=== PATIENT | female | born 1945 | race Two or more races ===

== ENCOUNTER 2022-06-05 09:04 | Emergency (ER) | payer MEDICARE, MEDICAID ==
[~2022-06-05] VITALS: Ht 142.2 cm; Wt 68.2 kg
[2022-06-05 09:10] VITALS: BP 129/81
[2022-06-05] MEDS ORDERED: TRAM50TA2 PO (10:41)
== END 2022-06-05 10:39 | disposition home or self-care (01) ==
LOC: ER 09:05
DX: S42.211A Unspecified displaced fracture of surgical neck of right humerus, initial encounter for closed fracture (principal); R53.1 Weakness; Z87.448 Personal history of other diseases of urinary system; Z88.0 Allergy status to penicillin; Z88.8 Allergy status to other drugs, medicaments and biological substances; Z79.899 Other long term (current) drug therapy
CPT/HCPCS: 73030; 99283; A4565

== ENCOUNTER 2023-08-25 11:03 | Inpatient (IN) | payer MEDICARE, MEDICAID ==
[~2023-08-25] VITALS: Ht 154.9 cm; Wt 38.0 kg
[2023-08-25] MEDS ORDERED: normal saline 1000ML IV soln IVB ONE (11:25)
--- NOTE | 2023-08-25 11:30 | NUR ---
PT BIBA FROM REHAB, MARX CATH AND PICC LINE IN PLACE. EMS PLACED 20ga PIV IN L HAND. PT IS AWAKE & ALERT, BUT IS NON-VERBAL. FAMILY IS ON THERE WAY
[2023-08-25] MEDS ORDERED: LORazepam 2 mg/ml vial IV ONE (12:00)
[2023-08-25 13:04] LABS: BASOPHILS % (AUTO) 0.8 % (0-1); EOSINOPHILS % (AUTO) 0.1 % (0-6); HEMATOCRIT 32.4 % (35.0-45.0); HEMOGLOBIN 10.7 g/dl (12.0-16.0); LYMPHOCYTES # (AUTO) 0.9 X10'3 (1.1-4.8); LYMPHOCYTES % (AUTO) 16.4 % (21-51); MEAN CORPUSCULAR HEMOGLOBIN 31.3 PG (27.0-31.0); MEAN CORPUSCULAR VOLUME 94.9 FL (78-98); MEAN PLATELET VOLUME 9.3 FL (7.4-10.4); MONOCYTES # (AUTO) 0.3 X10'3 (0-0.9); MONOCYTES % (AUTO) 6.3 % (2-12); NEUTROPHILS % (AUTO) 76.4 % (42-75); PLATELET COUNT 280 X10'3 (140-440); RED BLOOD COUNT 3.41 X10'6 (4.20-5.60); RED CELL DISTRIBUTION WIDTH 19.6 % (11.5-14.5); WHITE BLOOD COUNT 5.2 X10'3 (4.5-11.0)
[2023-08-25 13:07] LABS: BILIRUBIN,URINE NEGATIVE (Neg); CLARITY,URINE SLIGHTLY CLOUDY (Clear); COLOR,URINE YELLOW (Yellow); GLUCOSE, URINE NEGATIVE (Neg); KETONES,URINE 15 mg/dl (Neg); LEUKOCYTE ESTERASE ,URINE MODERATE (Neg); NITRITES, URINE NEGATIVE (Neg); OCCULT BLOOD,URINE TRACE-INTACT (Neg); PH,URINE 7.5 (4.8-8.0); PROTEIN,URINE 30 mg/dl (Neg); UROBILINOGEN,URINE 0.2 E.U/dL (0.2-1.0)
[2023-08-25 13:11] LABS: UA COLLECTION TYPE FOLEY CATH
[2023-08-25 13:14] LABS: ALANINE AMINOTRANSFERASE 16 U/L (12-78); ALBUMIN 2.3 G/DL (3.4-5.0); ALBUMIN/GLOBULIN RATIO 0.5 (1.1-1.5); ALKALINE PHOSPHATASE 63 IU/L (46-116); ANION GAP 11 (8-16); ASPARTATE AMINO TRANSFERASE 23 U/L (10-37); BILIRUBIN,TOTAL 0.4 MG/DL (0.1-1.0); BLOOD UREA NITROGEN 8 MG/DL (7-18); BUN/CREATININE RATIO 12.1 (10.0-20.0); CALCIUM 8.8 MG/DL (8.5-10.1); CHLORIDE 104 MMOL/L (99-107); CREATININE 0.66 MG/DL (0.40-0.90); GLUCOSE 83 MG/DL (70-104); SODIUM 138 MMOL/L (135-145); TOTAL CARBON DIOXIDE 23.3 MMOL/L (24-32); eCRCL 44 ML/MIN; eGFR 87 ML/MIN
[2023-08-25 13:16] LABS: POTASSIUM 2.9 MMOL/L (3.5-5.1)
[2023-08-25 13:22] LABS: SQUAMOUS EPITHELIAL CELL,UR NONE SEEN /LPF (FEW); WBC,URINE 50-100 /HPF (0-4)
[2023-08-25 13:26] LABS: BACTERIA,URINE FEW /HPF (Neg); RBC,URINE 0-2 /HPF (0-2); YEAST FEW /HPF (NEGATIVE)
[2023-08-25 13:37] LABS: PLATELET ESTIMATE NORMAL
[2023-08-25 13:38] LABS: ANISOCYTOSIS 2+; POIKILOCYTOSIS FEW
[2023-08-25] MEDS ORDERED: MEROPENEM 1GM/NS 100ML IVPB 100 ML IV STA (13:42)
--- NOTE | 2023-08-25 14:30 | NUR ---
PT SLEEPING AFTER BEING MEDICATED. FAMILY AT BS
[2023-08-25] MEDS ORDERED: potassium Cl 40MEQ/1/2NS 520ml 520 ML IV ONE (15:10)
[2023-08-25] MEDS ORDERED: potassium Cl 20 mEq SR tablet PO ONE (15:10)
[2023-08-25 15:21] LABS: MAGNESIUM 1.9 MG/DL (1.5-2.4)
[2023-08-25] MEDS: potassium Cl 40MEQ/1/2NS 520ml 520 ML IV SCH ×2 (15:42→20:20)
--- NOTE | 2023-08-25 16:12 | NUR ---
PT WITH NO CHANGE FROM PREVIOUS. IV K+ RUNNING. FAMILY AT .
--- NOTE | 2023-08-25 16:13 | NUR ---
Luisa girard in ED - 08/25/23 at 1613 by ROMIE PT IS CALM AND COOPERATIVE, TUNG AT .
[2023-08-25] MEDS ORDERED: potassium Cl 20 mEq SR tablet PO PRN ×2 (16:35)
[2023-08-25] MEDS ORDERED: ondansetron/PF 4mg/2ml inj IV PRN (16:35)
[2023-08-25] MEDS ORDERED: acetaminophen 325mg tablet PO PRN (16:35)
[2023-08-25] MEDS ORDERED: magnesium 4gm in 100ml NS 100 ML IV PRN (16:35)
[2023-08-25] MEDS ORDERED: ondansetron 4mg rapidly disintigrating tab PO PRN (16:35)
[2023-08-25] MEDS ORDERED: magnesium Cl slow-release 64mg tablet PO PRN (16:35)
[2023-08-25] MEDS ORDERED: magnesium 2GM in 50ml NS 50 ML IV PRN (16:35)
[2023-08-25] MEDS ORDERED: potassium Cl 40MEQ/1/2NS 520ml 520 ML IV PRN (16:35)
[2023-08-25] MEDS: normal saline 1000ml 1,000 ML IV SCH ×2 (17:03→21:12)
--- NOTE | 2023-08-25 17:56 | NUR ---
REPORT TO KRIS VASQUES, PT TO FLOOR.
[2023-08-25] MEDS ORDERED: FAMO20TA8 PO (19:47)
[2023-08-25] MEDS ORDERED: CALC-4 PO (19:47)
[2023-08-25] MEDS ORDERED: TRAZ-251 PO (19:47)
[2023-08-25] MEDS ORDERED: ATOR20TA66 PO (19:47)
[2023-08-25] MEDS ORDERED: LEVO50TA8 PO (19:47)
[2023-08-25] MEDS ORDERED: PARO40TA4 PO (19:47)
[2023-08-25] MEDS ORDERED: LORA10TA7 PO (19:47)
--- NOTE | 2023-08-25 19:55 | NUR ---
pt. arrived to floor via gurney accompanied by er staff. pt. arrived with bowel movement in diaper. cleaned pt and oriented to call light.
[2023-08-25 19:57] VITALS: BP 187/88; PULSE 75; RESP 14; TEMP 97.4; O2SAT 87
[2023-08-25] MEDS: docusate sod 100mg capsule PO SCH (20:00)
[2023-08-25] MEDS: K and/or MAG REPLACEMENT MC SCH (20:00)
[2023-08-25] MEDS: VANCOMYCIN 750MG IV in NS 250 ML IV SCH (20:08)
[2023-08-25] MEDS: heparin, porcine 5000 units/ml vial SQ SCH (20:09)
[2023-08-25 22:00] VITALS: BP 172/96; PULSE 85; RESP 19; TEMP 96.8; O2SAT 89
[2023-08-25] MEDS: meropenem inj 500 MG in normal saline 100ml IV soln 100 ML IV SCH (22:14)
[2023-08-26] MEDS: normal saline 1000ml 1,000 ML IV SCH ×2 (00:20→06:01)
[2023-08-26] MEDS: meropenem inj 500 MG in normal saline 100ml IV soln 100 ML IV SCH ×2 (01:41→07:42)
[2023-08-26 06:00] VITALS: BP 188/88; PULSE 72; RESP 16; TEMP 97.3; O2SAT 98
--- NOTE | 2023-08-26 06:23 | NUR ---
Problems reprioritized. Patient report given, questions answered & plan of care reviewed with LAYO Pugh.
--- NOTE | 2023-08-26 06:51 | NUR ---
Patient in room ORTHO 4018. I have received report from Leni and had the opportunity to ask questions and assume patient care.
[2023-08-26 06:52] LABS: ALBUMIN 1.8 G/DL (3.4-5.0); ANION GAP 7 (8-16); BLOOD UREA NITROGEN 7 MG/DL (7-18); BUN/CREATININE RATIO 11.7 (10.0-20.0); CALCIUM 8.2 MG/DL (8.5-10.1); CHLORIDE 112 MMOL/L (99-107); GLUCOSE 65 MG/DL (70-104); MAGNESIUM 1.9 MG/DL (1.5-2.4); POTASSIUM 4.2 MMOL/L (3.5-5.1); SODIUM 139 MMOL/L (135-145); TOTAL CARBON DIOXIDE 20.2 MMOL/L (24-32); eCRCL 48 ML/MIN; eGFR > 90 ML/MIN
[2023-08-26 07:25] LABS: BASOPHILS # (AUTO) 0.1 X10'3 (0-0.2); BASOPHILS % (AUTO) 0.9 % (0-1); EOSINOPHILS # (AUTO) 0.1 X10'3 (0-0.9); EOSINOPHILS % (AUTO) 0.9 % (0-6); HEMATOCRIT 29.6 % (35.0-45.0); HEMOGLOBIN 9.7 g/dl (12.0-16.0); LYMPHOCYTES # (AUTO) 1.3 X10'3 (1.1-4.8); LYMPHOCYTES % (AUTO) 21.3 % (21-51); MEAN CORPUSCULAR HEMOGLOBIN 31.9 PG (27.0-31.0); MEAN CORPUSCULAR HGB CONC 32.7 g/dL (33.0-36.5); MEAN CORPUSCULAR VOLUME 97.7 FL (78-98); MEAN PLATELET VOLUME 8.9 FL (7.4-10.4); MONOCYTES # (AUTO) 0.5 X10'3 (0-0.9); MONOCYTES % (AUTO) 8.6 % (2-12); NEUTROPHILS # (AUTO) 4.2 X10'3 (1.8-7.7); NEUTROPHILS % (AUTO) 68.3 % (42-75); PLATELET COUNT 213 X10'3 (140-440); RED BLOOD COUNT 3.03 X10'6 (4.20-5.60); RED CELL DISTRIBUTION WIDTH 20.5 % (11.5-14.5); WHITE BLOOD COUNT 6.1 X10'3 (4.5-11.0)
[2023-08-26] MEDS: K and/or MAG REPLACEMENT MC SCH ×2 (07:32→20:00)
[2023-08-26] MEDS: docusate sod 100mg capsule PO SCH ×2 (07:38→20:00)
[2023-08-26 08:55] VITALS: RESP 16; O2SAT 98
[2023-08-26] MEDS: heparin, porcine 5000 units/ml vial SQ SCH ×2 (09:28→20:21)
[2023-08-26 10:00] VITALS: BP 209/108; PULSE 79; RESP 18; TEMP 98.3; O2SAT 98
--- NOTE | 2023-08-26 10:42 | NUR ---
PAGER ID: [phone] MESSAGE: Re 4018 Tatyana, BP 168/70, this am 188 SBP, left arm deformed, no BP meds, PT is NPO, please see, berna Pugh [phone]
--- NOTE | 2023-08-26 11:26 | NUR ---
Low de consult: Pt presents with a low de score of 10 per EMR. Per RN physical assessment pt has a decubitus ulcer to coccyx resulting in wound care consult; pending [facility] note. Noted pt presents with a low BMI of 15.8 and a gurney scaled wt of 38kg (84 pounds) this admit with no additional wt hx in EMR. Pending RN malnutrition screen at this time though pt Aox1, worsening confusion, and hx of mild developmental disability as well as had been bedridden for 1 year due to generalized ongoing weakness. Thus pt not appropriate for wt hx or intake CHURCH SECRETARY at this time. Additionally pt has been advanced to nectar thick clear liquid diet though noted pending BSS per EMR. Will continue to monitor closely and make recommendations as appropriate. Addendum: 08/26/23 at [address] Amended: Links added.
[2023-08-26] MEDS ORDERED: meropenem inj 500 MG in normal saline 100ml IV soln 100 ML IV SCH (12:00)
--- NOTE | 2023-08-26 14:05 | NUR ---
F/u 08/26: Pt and 2 family members present at bedside during RD visit for malnutrition assessment. Scaled wt this admit of 38kg (84 pounds) and a BMI of 15.8. Family reports pt's wt typically fluctuates related to her behavior/mentation status however her last weight was 93 pounds about 3 months ago. Wt loss is about ~6.6% in 3 months; not significant for malnutrition at this time. Family reports pt has not ate or drank much for the past month due to change in mentation however eats "really good" otherwise. Pt presents edentulous, family reports for a long time and typically tolerates soft foods at home as well as drink 1/2 ensures twice a day. Family reports "I heard she didnt need that much Ensure so I have been only giving her half". RD encourage family to continue giving full ensures at home to decrease wt loss rate especially during the time of decreased in mentation if appropriate. Family is agreeable to pt drinking Ensures during her admit; will monitor for SAP BASIS ADMINISTRATOR recs and make recommendations as appropriate. Pt physically had signs mild wasting to her clavicle region however no noted physically wasting to temporal region at this time. Pt tighly bundled in a blanket and Aox1 thus not appropriate for a full nutrition focus physical exam. Additionally pt does not have edema at this time. Pt does not meet a minimum of two malnutrition criteria at this time. Addendum: 08/26/23 at [address] Amended: Links added.
--- NOTE | 2023-08-26 15:27 | NUR ---
PAGER ID: [phone] MESSAGE: Tatyana Olmos #[id number] - Pt needs pain meds. Can we have liquid Tylenol for her?? Not eating. Speech pathologist consult pending. Please advise. Molly Cosme for Lexy Enciso. [phone]
--- NOTE | 2023-08-26 16:42 | NUR ---
RE: 4018 Tatyana, positive blood cultures gram + cocci in clusters, aerobic bottle, right arm
[2023-08-26] MEDS: acetaminophen 650mg rectal suppository RC PRN (17:38)
[2023-08-26 18:00] VITALS: BP 160/94; PULSE 89; RESP 16; TEMP 98.9; O2SAT 99
--- NOTE | 2023-08-26 18:23 | NUR ---
Problems reprioritized. Patient report given, questions answered & plan of care reviewed with Holly Arciniega RN.
--- NOTE | 2023-08-26 18:30 | NUR ---
Patient in room ORTHO 4018. I have received report from LAYO Pugh and had the opportunity to ask questions and assume patient care.
[2023-08-26 20:10] VITALS: RESP 16; O2SAT 99
[2023-08-26] MEDS: levetiracetam inj 500 MG in normal saline 100ml IV soln 100 ML IV SCH (20:19)
[2023-08-26] MEDS: VANCOMYCIN 750MG IV in NS 250 ML IV SCH (20:20)
[2023-08-26 22:00] VITALS: BP 167/71; PULSE 80; RESP 16; TEMP 98.9; O2SAT 100
[2023-08-27 06:00] VITALS: BP 169/74; PULSE 76; RESP 14; TEMP 96.5; O2SAT 100
[2023-08-27 06:16] LABS: BASOPHILS # (AUTO) 0.1 X10'3 (0-0.2); BASOPHILS % (AUTO) 0.9 % (0-1); EOSINOPHILS # (AUTO) 0.1 X10'3 (0-0.9); EOSINOPHILS % (AUTO) 1.3 % (0-6); HEMATOCRIT 28.1 % (35.0-45.0); HEMOGLOBIN 9.1 g/dl (12.0-16.0); LYMPHOCYTES # (AUTO) 1.4 X10'3 (1.1-4.8); LYMPHOCYTES % (AUTO) 22.1 % (21-51); MEAN CORPUSCULAR HEMOGLOBIN 31.8 PG (27.0-31.0); MEAN CORPUSCULAR HGB CONC 32.3 g/dL (33.0-36.5); MEAN CORPUSCULAR VOLUME 98.7 FL (78-98); MEAN PLATELET VOLUME 9.1 FL (7.4-10.4); MONOCYTES # (AUTO) 0.7 X10'3 (0-0.9); MONOCYTES % (AUTO) 10.3 % (2-12); NEUTROPHILS # (AUTO) 4.2 X10'3 (1.8-7.7); NEUTROPHILS % (AUTO) 65.4 % (42-75); PLATELET COUNT 217 X10'3 (140-440); RED BLOOD COUNT 2.84 X10'6 (4.20-5.60); RED CELL DISTRIBUTION WIDTH 20.4 % (11.5-14.5); WHITE BLOOD COUNT 6.4 X10'3 (4.5-11.0)
[2023-08-27 06:20] LABS: ALBUMIN 1.7 G/DL (3.4-5.0); ANION GAP 9 (8-16); BLOOD UREA NITROGEN 7 MG/DL (7-18); BUN/CREATININE RATIO 10.9 (10.0-20.0); CHLORIDE 114 MMOL/L (99-107); CREATININE 0.64 MG/DL (0.40-0.90); GLUCOSE 81 MG/DL (70-104); MAGNESIUM 1.7 MG/DL (1.5-2.4); POTASSIUM 3.2 MMOL/L (3.5-5.1); SODIUM 142 MMOL/L (135-145); TOTAL CARBON DIOXIDE 19.2 MMOL/L (24-32); eCRCL 45 ML/MIN; eGFR 90 ML/MIN
--- NOTE | 2023-08-27 06:39 | NUR ---
Patient in room ORTHO 4018. I have received report from LAYO Barrera and had the opportunity to ask questions and assume patient care.
--- NOTE | 2023-08-27 06:46 | NUR ---
Problems reprioritized. Patient report given, questions answered & plan of care reviewed with LAYO Miller.
[2023-08-27 07:21] LABS: PLATELET ESTIMATE NORMAL
[2023-08-27 07:22] LABS: ANISOCYTOSIS 3+
[2023-08-27 07:23] LABS: BURR CELLS FEW
[2023-08-27] MEDS: K and/or MAG REPLACEMENT MC SCH ×2 (08:00→20:00)
[2023-08-27] MEDS: normal saline 1000ml 1,000 ML IV SCH ×2 (08:35→19:59)
[2023-08-27] MEDS ORDERED: potassium Cl 20 mEq SR tablet PO STA (08:43)
[2023-08-27] MEDS: docusate sod 100mg capsule PO SCH ×2 (09:09→20:00)
[2023-08-27] MEDS: levetiracetam inj 500 MG in normal saline 100ml IV soln 100 ML IV SCH ×2 (09:09→19:58)
[2023-08-27] MEDS: heparin, porcine 5000 units/ml vial SQ SCH ×2 (09:09→22:01)
[2023-08-27] MEDS: atorvastatin 20mg tablet PO SCH (09:09)
[2023-08-27] MEDS ORDERED: acetaminophen 325mg/10.15ml oral unit dose solution PO PRN (09:50)
[2023-08-27] MEDS ORDERED: HYDROcodone/acetaminophen 5mg/325mg tablet PO PRN (09:50)
--- NOTE | 2023-08-27 10:23 | NUR ---
pt was able to take an oral medication for me, but is better with liquids. Liquid acetaminophen has been ordered to help with pain. Son is in room visiting and says that she seems sedated to him and that her baseline is that she can have a conversation and understand where she is at. Pt has been nonverbal for me and not able to communicate other than painful grimaces and some shouting.
[2023-08-27] MEDS: acetaminophen 650mg rectal suppository RC PRN (10:36)
--- NOTE | 2023-08-27 11:04 | NUR ---
pt K is 3.2l and needs to be replaced IV due to patient not being able to swallow k-dur tablet. I messaged pharmacy and will continue to check omnicell for IV medication.
--- NOTE | 2023-08-27 12:37 | NUR ---
Paged PICC nurse to D/C picc line, will continue to monitor patient.
--- NOTE | 2023-08-27 12:54 | NUR ---
F/u 08/27: Pt seen by RISK CONTROL MANAGER this AM whom recommends full liquid nectar thick liquid diet and a feeder to assist with meals. Due to restrictive diet, recommend Ensure Enlive to help meet estimated needs; MD notified. Will continue to monitor for WOC note. Recommendations: 1.continue full liquid nectar thick diet per RISK CONTROL MANAGER; feeder with all meals 2.Ensure Enlive TIDWM to help meet estimated needs while on restrictive diet; pending physician approval in EMR Addendum: 08/27/23 at [address] Amended: Links added.
--- NOTE | 2023-08-27 15:28 | NUR ---
PRESSURE ULCER EDUCATION: DEFINITION: A pressure ulcer is an area of skin that breaks down when you stay in one position too long. The constant pressure against the skin reduces the blood flow to that area and the affected tissue dies. CAUSES: "Being bedridden or in a wheelchair "Fragile skin "Having a chronic condition, such as diabetes or vascular disease "Inability to move certain parts of your body without assistance "Older age "Incontinence of urine or stool SYMPTOMS: "A reddened area that DOES NOT turn white when pressed on - this can be the beginning of a pressure ulcer "A blister, deep sore or a crater - these can be advanced pressure ulcers FIRST AID: "Relieve the pressure on this area "Keep the area clean and dry "Call your primary doctor if you see any of the above symptoms "DO NOT massage the area "DO NOT use a donut shaped or ring shaped pillow- these actually interfere with the blood flow and cause complications PREVENTION: "Check for pressure ulcers everyday "Change position at least every two hours to relieve pressure "Use items that help relieve pressure- pillows, sheepskin, foam padding, and powders. "Keep skin clean and dry "Eat healthy well balanced meals "Exercise daily IF YOU SEE ANY OF THESE SYMPTOMS WHILE IN THE HOSPITAL - TELL YOUR NURSE IMMEDIATELY. IF YOU SEE ANY OF THESE SYMPTOMS WHILE AT HOME OR HAVE ANY QUESTIONS OR CONCERNS ABOUT PRESSURE ULCERS - CALL YOUR PRIMARY DOCTOR IMMEDIATELY. Addendum: 08/27/23 at 1528 by Jonathan Yi RN Amended: Links added.
[2023-08-27 18:00] VITALS: BP 191/96; PULSE 93; RESP 13; TEMP 98.2; O2SAT 98
--- NOTE | 2023-08-27 18:16 | NUR ---
pt rm [id number]- Amarilis Joe- can someone come to her room to do an EEG please? Thank you.
--- NOTE | 2023-08-27 18:22 | NUR ---
The EEG will be done in the morning due to order not being placed right and is not here and will be here in the morning.
--- NOTE | 2023-08-27 18:55 | NUR ---
Problems reprioritized. Patient report given, questions answered & plan of care reviewed with LAYO Bravo.
[2023-08-27 20:00] VITALS: RESP 15; O2SAT 98
[2023-08-27] MEDS: famotidine 20mg tablet PO SCH (20:00)
[2023-08-27] MEDS: traZODone 50mg tablet PO SCH (21:00)
[2023-08-27] MEDS: VANCOMYCIN 750MG IV in NS 250 ML IV SCH (21:54)
[2023-08-27 22:00] VITALS: BP 172/78; PULSE 92; RESP 12; TEMP 98.1; O2SAT 99
[2023-08-28] MEDS: acetaminophen 650mg rectal suppository RC PRN (00:26)
--- NOTE | 2023-08-28 02:48 | NUR ---
MESSAGE: [id number] Amarilis Joe 78 ALOC. her BP has been high. 191/96 hr93, 172/78 hr92. should she get any BP meds? she doesn't swallow. Thank you
[2023-08-28] MEDS ORDERED: hydrALAZINE 20mg/ml inj. IV ONE (02:55)
[2023-08-28 06:00] VITALS: BP 160/72; PULSE 103; RESP 12; TEMP 98.9; O2SAT 95
[2023-08-28] MEDS: normal saline 1000ml 1,000 ML IV SCH ×2 (06:22→20:32)
--- NOTE | 2023-08-28 06:43 | NUR ---
Problems reprioritized. Patient report given, questions answered & plan of care reviewed with LAYO RAMSEY.
--- NOTE | 2023-08-28 06:59 | NUR ---
Patient in room ORTHO 4018. I have received report from Lena blake and had the opportunity to ask questions and assume patient care.
[2023-08-28] MEDS: levoTHYROXINE 25mcg tablet PO SCH (07:00)
[2023-08-28] MEDS: loratadine 10mg tablet PO SCH (08:00)
[2023-08-28] MEDS: PARoxetine 20mg tablet PO SCH (08:00)
[2023-08-28] MEDS: atorvastatin 20mg tablet PO SCH (08:00)
[2023-08-28] MEDS: K and/or MAG REPLACEMENT MC SCH ×2 (08:00→20:00)
[2023-08-28] MEDS: famotidine 20mg tablet PO SCH (08:00)
[2023-08-28] MEDS: docusate sod 100mg capsule PO SCH ×2 (08:00→20:00)
[2023-08-28] MEDS: calcium carbonate/vitamin D3 tablet PO SCH (08:00)
[2023-08-28] MEDS: levetiracetam inj 500 MG in normal saline 100ml IV soln 100 ML IV SCH ×2 (08:12→20:02)
[2023-08-28] MEDS: heparin, porcine 5000 units/ml vial SQ SCH ×2 (08:25→20:40)
[2023-08-28 09:55] LABS: BASOPHILS # (AUTO) 0.1 X10'3 (0-0.2); BASOPHILS % (AUTO) 0.8 % (0-1); EOSINOPHILS % (AUTO) 0.1 % (0-6); HEMATOCRIT 27.3 % (35.0-45.0); HEMOGLOBIN 8.9 g/dl (12.0-16.0); LYMPHOCYTES # (AUTO) 1.3 X10'3 (1.1-4.8); MEAN CORPUSCULAR HEMOGLOBIN 31.6 PG (27.0-31.0); MEAN CORPUSCULAR HGB CONC 32.5 g/dL (33.0-36.5); MEAN CORPUSCULAR VOLUME 97.3 FL (78-98); MEAN PLATELET VOLUME 9.1 FL (7.4-10.4); MONOCYTES # (AUTO) 0.6 X10'3 (0-0.9); MONOCYTES % (AUTO) 5.3 % (2-12); NEUTROPHILS # (AUTO) 9.6 X10'3 (1.8-7.7); NEUTROPHILS % (AUTO) 82.8 % (42-75); PLATELET COUNT 252 X10'3 (140-440); RED BLOOD COUNT 2.81 X10'6 (4.20-5.60); RED CELL DISTRIBUTION WIDTH 20.3 % (11.5-14.5); WHITE BLOOD COUNT 11.6 X10'3 (4.5-11.0)
--- NOTE | 2023-08-28 09:57 | NUR ---
Initial: Pt DX encephalopathy, facial twitching likely focal seizures, chronic recurrent UTI, and sacral pressure ulcer per EMR. Pt continues on a full liquid diet nectar think per SECURITY EXPERT due to cognitive state with average PO intake of 44% x 4 meals of full liquid though not meeting estimated needs due to liquid diet insufficient to meet estimated needs. Pending Ensure Enlive physician approval in EMR. Per WOC pt has stage 2 PU to sacrum. Consider Zinc, Vitamin C and Multivitamin due to assist with wound healing per MD discretion; communicated with RN. ESPINOZA 08/26 with routine bowel care on order though unable to receive due to pt uncooperative per EMR. Will continue to monitor closely and make recommendations as appropriate. Recommendations: 1.continue full liquid nectar thick diet per SECURITY EXPERT; feeder with all meals 2.Ensure Enlive TIDWM; pending physician approval in EMR 3.consider MVM, Zinc and Vitamin C supplement for wound healing per physician 4.routine bowel care 5.weekly scaled wt Addendum: 08/28/23 at [address] Amended: Links added.
[2023-08-28 10:11] LABS: ANION GAP 14 (8-16); BLOOD UREA NITROGEN 9 MG/DL (7-18); BUN/CREATININE RATIO 12.5 (10.0-20.0); CHLORIDE 116 MMOL/L (99-107); CREATININE 0.72 MG/DL (0.40-0.90); GLUCOSE 93 MG/DL (70-104); POTASSIUM 3.2 MMOL/L (3.5-5.1); SODIUM 145 MMOL/L (135-145); TOTAL CARBON DIOXIDE 15.1 MMOL/L (24-32)
[2023-08-28 10:12] LABS: ALBUMIN 1.8 G/DL (3.4-5.0); MAGNESIUM 1.6 MG/DL (1.5-2.4); eCRCL 40 ML/MIN; eGFR 79 ML/MIN
[2023-08-28] MEDS ORDERED: morphine oral 20mg/ml (conc. morphine) 1ml oral syringe PO PRN (13:30)
--- NOTE | 2023-08-28 17:52 | NUR ---
EEG done results pending. Repeat Neuro consult in process, family present. PICC line removed to MICHELLE intact. patient moaning alot given roxanol x1 with mod effect. Seen BY dr HWANG AND dR Ceron.
[2023-08-28 18:00] VITALS: BP 155/77; PULSE 93; RESP 14; TEMP 98; O2SAT 96
[2023-08-28] MEDS ORDERED: VANCOMYCIN LEVEL IV ONE (18:30)
--- NOTE | 2023-08-28 18:30 | NUR ---
unable tp place IV. ER contacted. report given to Lena VASQUES
[2023-08-28 20:00] VITALS: RESP 14
[2023-08-28] MEDS: VANCOMYCIN 750MG IV in NS 250 ML IV SCH (20:33)
[2023-08-28] MEDS: traZODone 50mg tablet PO SCH (20:43)
[2023-08-28 22:00] VITALS: BP 141/71; PULSE 86; RESP 14; TEMP 97.1; O2SAT 96
[2023-08-28] MEDS: morphine 10mg/0.5ml (conc. morphine) oral syringe PO PRN (23:29)
[2023-08-29] VITALS (8 sets, daily range): BP systolic 112–151; BP diastolic 58–81; PULSE 69–82; RESP 12–18; TEMP 97.1–98; O2SAT 91–98
[2023-08-29] MEDS: normal saline 1000ml 1,000 ML IV SCH ×3 (00:35→21:45)
[2023-08-29] MEDS: morphine 10mg/0.5ml (conc. morphine) oral syringe PO PRN ×3 (02:30→08:32)
[2023-08-29] MEDS: levoTHYROXINE 25mcg tablet PO SCH (07:00)
--- NOTE | 2023-08-29 07:16 | NUR ---
Patient in room ORTHO 4018. I have received report from DAXA VASQUES and had the opportunity to ask questions and assume patient care.
[2023-08-29 07:23] LABS: ALBUMIN 1.5 G/DL (3.4-5.0); ANION GAP 10 (8-16); BLOOD UREA NITROGEN 8 MG/DL (7-18); BUN/CREATININE RATIO 12.7 (10.0-20.0); CALCIUM 7.8 MG/DL (8.5-10.1); CHLORIDE 117 MMOL/L (99-107); CREATININE 0.63 MG/DL (0.40-0.90); GLUCOSE 82 MG/DL (70-104); MAGNESIUM 1.7 MG/DL (1.5-2.4); SODIUM 143 MMOL/L (135-145); TOTAL CARBON DIOXIDE 15.6 MMOL/L (24-32); eCRCL 46 ML/MIN; eGFR > 90 ML/MIN
[2023-08-29 07:27] LABS: POTASSIUM 3.4 MMOL/L (3.5-5.1)
[2023-08-29] MEDS: levetiracetam inj 500 MG in normal saline 100ml IV soln 100 ML IV SCH (07:59)
[2023-08-29] MEDS: atorvastatin 20mg tablet PO SCH (08:00)
[2023-08-29] MEDS: docusate sod 100mg capsule PO SCH ×2 (08:00→20:00)
[2023-08-29] MEDS: K and/or MAG REPLACEMENT MC SCH ×3 (08:00→20:00)
[2023-08-29] MEDS: loratadine 10mg tablet PO SCH (08:00)
[2023-08-29] MEDS: calcium carbonate/vitamin D3 tablet PO SCH (08:00)
[2023-08-29] MEDS: PARoxetine 20mg tablet PO SCH (08:00)
[2023-08-29] MEDS: heparin, porcine 5000 units/ml vial SQ SCH ×2 (08:01→20:36)
--- NOTE | 2023-08-29 10:15 | NUR ---
Late entry: Pt unable to follow directions to perform eye accomodation test Addendum: 08/29/23 at 1025 by Majo SOMERS Amended: Links added.
--- NOTE | 2023-08-29 11:30 | NUR ---
informed md that pt was unable to swallow her meds and not taking in any foods/ fluids, she refused breakfast. and also informed md that family did not want her to have anymore morphine at this time after the am dose that was given with son at bedside.
[2023-08-29] MEDS ORDERED: levetiracetam inj 1,000 MG in normal saline 100ml IV soln 100 ML IV ONE (12:10)
[2023-08-29] MEDS ORDERED: LORazepam 2 mg/ml vial IV ONE ×2 (12:10→14:20)
[2023-08-29 12:11] LABS: BASOPHILS # (AUTO) 0.1 X10'3 (0-0.2); BASOPHILS % (AUTO) 0.8 % (0-1); EOSINOPHILS # (AUTO) 0.1 X10'3 (0-0.9); EOSINOPHILS % (AUTO) 0.9 % (0-6); HEMATOCRIT 27.9 % (35.0-45.0); LYMPHOCYTES # (AUTO) 1.2 X10'3 (1.1-4.8); LYMPHOCYTES % (AUTO) 16.9 % (21-51); MEAN CORPUSCULAR HEMOGLOBIN 31.5 PG (27.0-31.0); MEAN CORPUSCULAR HGB CONC 32.2 g/dL (33.0-36.5); MEAN PLATELET VOLUME 9.2 FL (7.4-10.4); MONOCYTES # (AUTO) 0.4 X10'3 (0-0.9); MONOCYTES % (AUTO) 5.4 % (2-12); NEUTROPHILS # (AUTO) 5.3 X10'3 (1.8-7.7); PLATELET COUNT 241 X10'3 (140-440); RED BLOOD COUNT 2.85 X10'6 (4.20-5.60); RED CELL DISTRIBUTION WIDTH 20.6 % (11.5-14.5)
--- NOTE | 2023-08-29 13:00 | NUR ---
family wanted pt to have Tylenol for pain and pts K was low. called resident she said pt can have Tylenol IV and potassium per protocol.
[2023-08-29] MEDS ORDERED: potassium Cl 40MEQ/1/2NS 520ml 520 ML IV PRN (13:15)
[2023-08-29] MEDS ORDERED: potassium Cl 20 mEq SR tablet PO PRN ×2 (13:15)
[2023-08-29] MEDS ORDERED: acetaminophen 1,000mg/100ml IV 100 ML IV PRN (13:15)
[2023-08-29] MEDS ORDERED: acetaminophen 650mg rectal suppository RC PRN (14:50)
[2023-08-29 15:44] LABS: ANISOCYTOSIS 3+; BURR CELLS 2+; ELLIPTOCYTES FEW; PLATELET ESTIMATE NORMAL; SCHISTOCYTES FEW
--- NOTE | 2023-08-29 16:25 | NUR ---
physical assessment charting reviewed with student, RN
[2023-08-29] MEDS: potassium Cl 40MEQ/1/2NS 520ml 520 ML IV PRN (17:54)
--- NOTE | 2023-08-29 18:00 | NUR ---
Patient in room ORTHO 4018. I have received report from LAYO Box and had the opportunity to ask questions and assume patient care.
--- NOTE | 2023-08-29 18:49 | NUR ---
gave pt 1 mg Ativan little after 1600, when going to check on pt about 1630ish she was sleepy, i checked her vitals they were 112/58, hr 73, O2 was 91%. i got a nasal cannula and put her on 2 L she came up to about 95%. MRI took her down to get her scan done. pt does some moaning when moving pts legs. current vitals 147/74, hr 68, O2 on RA 98%. resident was notified about this.
--- NOTE | 2023-08-29 19:58 | NUR ---
Problems reprioritized. Patient report given, questions answered & plan of care reviewed with rik blake.
[2023-08-29] MEDS: VANCOMYCIN 750MG IV in NS 250 ML IV SCH (20:27)
[2023-08-29] MEDS: traZODone 50mg tablet PO SCH (20:39)
[2023-08-29] MEDS: levetiracetam inj 1,000 MG in normal saline 100ml IV soln 100 ML IV SCH (21:44)
[2023-08-30 06:00] VITALS: BP 148/81; PULSE 81; RESP 16; TEMP 97.9; O2SAT 99
--- NOTE | 2023-08-30 06:20 | NUR ---
Problems reprioritized. Patient report given, questions answered & plan of care reviewed with LAYO Box.
--- NOTE | 2023-08-30 06:54 | NUR ---
Patient in room ORTHO 4018. I have received report from rik blake and had the opportunity to ask questions and assume patient care.
[2023-08-30] MEDS: levoTHYROXINE 25mcg tablet PO SCH (07:00)
[2023-08-30 07:04] LABS: BASOPHILS # (AUTO) 0.1 X10'3 (0-0.2); BASOPHILS % (AUTO) 0.9 % (0-1); EOSINOPHILS # (AUTO) 0.1 X10'3 (0-0.9); EOSINOPHILS % (AUTO) 1.1 % (0-6); HEMATOCRIT 30.5 % (35.0-45.0); HEMOGLOBIN 9.8 g/dl (12.0-16.0); LYMPHOCYTES # (AUTO) 1.1 X10'3 (1.1-4.8); LYMPHOCYTES % (AUTO) 16.8 % (21-51); MEAN CORPUSCULAR HEMOGLOBIN 31.9 PG (27.0-31.0); MEAN CORPUSCULAR HGB CONC 32.3 g/dL (33.0-36.5); MEAN CORPUSCULAR VOLUME 98.8 FL (78-98); MEAN PLATELET VOLUME 9.2 FL (7.4-10.4); MONOCYTES # (AUTO) 0.3 X10'3 (0-0.9); MONOCYTES % (AUTO) 4.3 % (2-12); NEUTROPHILS # (AUTO) 4.9 X10'3 (1.8-7.7); NEUTROPHILS % (AUTO) 76.9 % (42-75); PLATELET COUNT 233 X10'3 (140-440); RED BLOOD COUNT 3.09 X10'6 (4.20-5.60); RED CELL DISTRIBUTION WIDTH 21.1 % (11.5-14.5); WHITE BLOOD COUNT 6.3 X10'3 (4.5-11.0)
[2023-08-30 07:40] LABS: ALANINE AMINOTRANSFERASE 65 U/L (12-78); ALBUMIN 1.6 G/DL (3.4-5.0); ALBUMIN/GLOBULIN RATIO 0.4 (1.1-1.5); ALKALINE PHOSPHATASE 316 IU/L (46-116); ANION GAP 10 (8-16); ASPARTATE AMINO TRANSFERASE 99 U/L (10-37); BILIRUBIN,TOTAL 0.5 MG/DL (0.1-1.0); BLOOD UREA NITROGEN 8 MG/DL (7-18); BUN/CREATININE RATIO 12.7 (10.0-20.0); CALCIUM 7.9 MG/DL (8.5-10.1); CHLORIDE 119 MMOL/L (99-107); CREATININE 0.63 MG/DL (0.40-0.90); GLUCOSE 68 MG/DL (70-104); MAGNESIUM 1.5 MG/DL (1.5-2.4); PHOSPHORUS 2.3 MG/DL (2.3-4.5); POTASSIUM 3.5 MMOL/L (3.5-5.1); SODIUM 146 MMOL/L (135-145); TOTAL CARBON DIOXIDE 17.1 MMOL/L (24-32); TOTAL PROTEIN 5.9 G/DL (6.4-8.2); eCRCL 46 ML/MIN; eGFR > 90 ML/MIN
[2023-08-30 07:41] LABS: THYROID STIMULATING HORMONE 6.91 ulU/ml (0.34-4.50)
[2023-08-30] MEDS: loratadine 10mg tablet PO SCH ×2 (08:00→11:27)
[2023-08-30] MEDS: atorvastatin 20mg tablet PO SCH ×2 (08:00→11:27)
[2023-08-30] MEDS: calcium carbonate/vitamin D3 tablet PO SCH ×2 (08:00→11:27)
[2023-08-30] MEDS: K and/or MAG REPLACEMENT MC SCH ×4 (08:00→20:00)
[2023-08-30] MEDS: docusate sod 100mg capsule PO SCH ×3 (08:00→20:32)
[2023-08-30] MEDS: famotidine 20mg tablet PO SCH (08:00)
[2023-08-30] MEDS: PARoxetine 20mg tablet PO SCH (08:00)
[2023-08-30] MEDS: levetiracetam inj 1,000 MG in normal saline 100ml IV soln 100 ML IV SCH ×2 (08:45→20:31)
[2023-08-30] MEDS: heparin, porcine 5000 units/ml vial SQ SCH ×2 (08:46→20:32)
[2023-08-30] MEDS: normal saline 1000ml 1,000 ML IV SCH ×2 (08:58→19:03)
[2023-08-30 08:59] VITALS: RESP 12; O2SAT 97
[2023-08-30 10:00] VITALS: BP 164/84; PULSE 85; RESP 17; TEMP 98.5; O2SAT 97
--- NOTE | 2023-08-30 10:58 | NUR ---
talked to resident about son wanting to start up Roxanol again and she said 5 mg q3 prn. pt son came up and asked if she could have some pain meds. he said she seems like shes in more pain today. son said it is ok to give pt the 5 mg Roxanol for pain.
[2023-08-30] MEDS ORDERED: morphine ORAL 5MG/0.25 ML (Conc. morphine) oral syringe PO PRN (11:00)
--- NOTE | 2023-08-30 11:00 | NUR ---
attempted to give pt her morning meds since the son was here and he said he could try to help. but pt spit out the apple sauce and crushed pill. unable to get her to take them.
[2023-08-30] MEDS: morphine 10mg/0.5ml (conc. morphine) oral syringe PO PRN (11:27)
--- NOTE | 2023-08-30 13:26 | NUR ---
per dr higgins changed some oral meds to iv due to pt spitting out meds at times. dr higgins is aware of this and the pt not being able to take her oral meds the last few days. son does seem to get her to drink and eat more then staff.
[2023-08-30] MEDS: pantoprazole 40MG/NS 100ML BAG 100 ML IV SCH (14:59)
[2023-08-30] MEDS: LEVOTHYROXINE SODIUM 100 MCG/5 ML injection IV SCH (15:01)
--- NOTE | 2023-08-30 15:40 | NUR ---
pts son asked if pt could have some Ativan, she was being anxious and yelling out a lot.
[2023-08-30] MEDS: LORazepam 2 mg/ml vial IV PRN (16:00)
[2023-08-30 18:00] VITALS: BP 127/68; PULSE 60; RESP 18; TEMP 97.8; O2SAT 95
[2023-08-30] MEDS: lactose-reduced food (Ensure Enlive) - 237ml bottle PO SCH (18:00)
--- NOTE | 2023-08-30 18:00 | NUR ---
Patient in room ORTHO 4018. I have received report from LAYO Box and had the opportunity to ask questions and assume patient care.
[2023-08-30] MEDS ORDERED: magnesium hydroxide 30ml (MOM) UD suspension PO PRN (18:35)
--- NOTE | 2023-08-30 18:44 | NUR ---
Problems reprioritized. Patient report given, questions answered & plan of care reviewed with karthik blake.
[2023-08-30] MEDS: VANCOMYCIN 750MG IV in NS 250 ML IV SCH (19:01)
[2023-08-30 20:00] VITALS: RESP 18; O2SAT 100
[2023-08-30] MEDS: traZODone 50mg tablet PO SCH (20:32)
--- NOTE | 2023-08-30 21:40 | NUR ---
neurology called and said that the EEG looks the same as compared to previous reading. He recommends that they change the plan of care with medicine. Will have staff inform the physician.
[2023-08-30 22:00] VITALS: BP 156/67; PULSE 74; RESP 18; TEMP 95.6; O2SAT 100
[2023-08-31] MEDS: morphine 2 MG/ML inj. syringe IV PRN (00:06)
[2023-08-31] MEDS: normal saline 1000ml 1,000 ML IV SCH (02:27)
[2023-08-31] MEDS: LORazepam 2 mg/ml vial IV PRN ×2 (02:52→18:57)
[2023-08-31 06:00] VITALS: BP 129/52; PULSE 72; RESP 16; TEMP 96.4; O2SAT 98
--- NOTE | 2023-08-31 06:34 | NUR ---
Problems reprioritized. Patient report given, questions answered & plan of care reviewed with CLINTON Ferraro.
--- NOTE | 2023-08-31 06:54 | NUR ---
I have received report from LAYO Pratt and had the opportunity to ask questions and assume patient care. NO distress at this time. Patient is currently hooked up to consistent EEG monitoring.
[2023-08-31 08:00] VITALS: RESP 16; O2SAT 98
[2023-08-31] MEDS: docusate sod 100mg capsule PO SCH ×2 (08:00→19:22)
[2023-08-31] MEDS: lactose-reduced food (Ensure Enlive) - 237ml bottle PO SCH ×3 (08:00→18:03)
[2023-08-31] MEDS: PARoxetine 20mg tablet PO SCH (08:00)
[2023-08-31] MEDS: heparin, porcine 5000 units/ml vial SQ SCH ×2 (08:00→19:21)
[2023-08-31] MEDS: calcium carbonate/vitamin D3 tablet PO SCH (08:00)
[2023-08-31] MEDS: K and/or MAG REPLACEMENT MC SCH ×4 (08:00→19:33)
[2023-08-31] MEDS: nicotine 14mg patch - 24hr TD SCH (08:00)
[2023-08-31] MEDS: atorvastatin 20mg tablet PO SCH (08:00)
[2023-08-31] MEDS: loratadine 10mg tablet PO SCH (08:00)
[2023-08-31] MEDS: pantoprazole 40MG/NS 100ML BAG 100 ML IV SCH (08:02)
[2023-08-31] MEDS: LEVOTHYROXINE SODIUM 100 MCG/5 ML injection IV SCH (08:23)
[2023-08-31] MEDS: levetiracetam inj 1,000 MG in normal saline 100ml IV soln 100 ML IV SCH ×2 (08:23→21:12)
[2023-08-31 09:32] LABS: ALANINE AMINOTRANSFERASE 44 U/L (12-78); ALBUMIN 1.4 G/DL (3.4-5.0); ALBUMIN/GLOBULIN RATIO 0.4 (1.1-1.5); ALKALINE PHOSPHATASE 270 IU/L (46-116); ANION GAP 6 (8-16); ASPARTATE AMINO TRANSFERASE 40 U/L (10-37); BILIRUBIN,TOTAL 0.4 MG/DL (0.1-1.0); BLOOD UREA NITROGEN 5 MG/DL (7-18); BUN/CREATININE RATIO 7.4 (10.0-20.0); CALCIUM 7.9 MG/DL (8.5-10.1); CHLORIDE 116 MMOL/L (99-107); CREATININE 0.68 MG/DL (0.40-0.90); GLUCOSE 74 MG/DL (70-104); MAGNESIUM 1.5 MG/DL (1.5-2.4); PHOSPHORUS 2.3 MG/DL (2.3-4.5); SODIUM 144 MMOL/L (135-145); THYROID STIMULATING HORMONE 6.38 ulU/ml (0.34-4.50); TOTAL CARBON DIOXIDE 21.6 MMOL/L (24-32); TOTAL PROTEIN 4.9 G/DL (6.4-8.2); eCRCL 42 ML/MIN; eGFR 84 ML/MIN
[2023-08-31 09:34] LABS: POTASSIUM 2.8 MMOL/L (3.5-5.1)
--- NOTE | 2023-08-31 09:45 | NUR ---
Notified the resident of the critical K (2.8), replacing per protocol. Notified pharmacy of replacement bags needed.
--- NOTE | 2023-08-31 10:12 | NUR ---
promotional table spacer Page Accepted promotional table spacer Message: Jasmine [phone] Patient in RM: 4012 Suk[address] Joe. There is no improvement in her EEG, can we D/C for the Lumbar puncture to be performed? Critical K level is 2.8, being replaced per protocol.
--- NOTE | 2023-08-31 10:45 | NUR ---
Reassessment: Pt advanced to pureed diet with NTL per ST recs 08/30 and pt continues eating poorly, documented with mostly 0% PO intake of meals. Noted an Ensure Enlive TID was ordered though dietary not sending. D/w dietary to send ONS per rx. Per ST note 08/30 pt often spits out food and may need alternative nutrition if she does not get enough PO. RD agrees that pt would benefit from nutrition support if PO intake does not improve as pt with insufficient nutrient intake for roughly five days. LBM 08/26 per EMR. Pt with routine bowel care available though it is often held. Per EMR pt received PRN MoM 08/30. Will continue to follow closely and make recommendations as appropriate. Recommendations: 1. Continue pureed diet with nectar thick liquids per ST recs 2. Ensure Enlive TIDWM 3. Encourage PO intake and total assistance with meals 4. Initiate nutrition support if PO intake does not improve and is within POC 5. Consider routine MVM with iron, Zinc, and Vitamin C supplement for wound healing 6. Routine and PRN bowel care 7. Weekly scaled wts Addendum: 08/31/23 at [address] Amended: Links added.
[2023-08-31] MEDS: potassium Cl 40MEQ/1/2NS 520ml 520 ML IV PRN ×2 (10:47→17:26)
--- NOTE | 2023-08-31 11:58 | NUR ---
Patient has arrived back from the L.P, stated by the IR team it was unsuccessful. Resident Dr. Wolf aware by IR team.
[2023-08-31] MEDS ORDERED: midazolam 1 mg/ML 2ml injection ONE (12:28)
--- NOTE | 2023-08-31 13:24 | NUR ---
WOC in for the follow up skin assessment of coccyx and low Jeffrey score. Pt. had multiple people in Pt. room getting Pt. ready to take Pt. down to lab for testing. After talking to primary nurse, Pt was being prepped taken for a lumbar puncture procedure. Discussed with primary nurse that WO care will continue to monitor progress and follow Pt.
--- NOTE | 2023-08-31 16:14 | NUR ---
CUSTODIAN BLOOD BANK documentation: I have reviewed and agree with all interventions, assessments performed and documented by Jasmine Underwood LVN.
[2023-08-31 18:00] VITALS: BP 157/94; PULSE 86; RESP 18; TEMP 98.7; O2SAT 100
--- NOTE | 2023-08-31 18:29 | NUR ---
Problems reprioritized. Patient report given, questions answered & plan of care reviewed with Cady VASQUES.
--- NOTE | 2023-08-31 18:30 | NUR ---
Patient in room ORTHO 4018. I have received report from candi CORBIN and had the opportunity to ask questions and assume patient care.
[2023-08-31] MEDS: VANCOMYCIN 750MG IV in NS 250 ML IV SCH (19:21)
[2023-08-31 20:00] VITALS: RESP 18; O2SAT 100
[2023-08-31] MEDS: traZODone 50mg tablet PO SCH (21:00)
[2023-08-31 22:00] VITALS: BP 150/72; PULSE 84; RESP 18; TEMP 98.8; O2SAT 100
[2023-09-01 04:33] LABS: ALANINE AMINOTRANSFERASE 28 U/L (12-78); ALBUMIN 1.2 G/DL (3.4-5.0); ALBUMIN/GLOBULIN RATIO 0.4 (1.1-1.5); ALKALINE PHOSPHATASE 219 IU/L (46-116); ANION GAP 5 (8-16); ASPARTATE AMINO TRANSFERASE 20 U/L (10-37); BILIRUBIN,TOTAL 0.3 MG/DL (0.1-1.0); BLOOD UREA NITROGEN 6 MG/DL (7-18); BUN/CREATININE RATIO 9.7 (10.0-20.0); CALCIUM 7.5 MG/DL (8.5-10.1); CHLORIDE 116 MMOL/L (99-107); CREATININE 0.62 MG/DL (0.40-0.90); GLUCOSE 120 MG/DL (70-104); MAGNESIUM 1.4 MG/DL (1.5-2.4); PHOSPHORUS 2.1 MG/DL (2.3-4.5); POTASSIUM 3.7 MMOL/L (3.5-5.1); SODIUM 143 MMOL/L (135-145); TOTAL CARBON DIOXIDE 21.8 MMOL/L (24-32); TOTAL PROTEIN 4.5 G/DL (6.4-8.2); eCRCL 46 ML/MIN; eGFR > 90 ML/MIN
[2023-09-01] MEDS: normal saline 1000ml 1,000 ML IV SCH (04:36)
[2023-09-01 06:00] VITALS: BP 114/71; PULSE 82; RESP 16; TEMP 97; O2SAT 97
--- NOTE | 2023-09-01 06:33 | NUR ---
Problems reprioritized. Patient report given, questions answered & plan of care reviewed with CLINTON Lockhart.
--- NOTE | 2023-09-01 06:51 | NUR ---
Patient in room ORTHO 4018. I have received report from LAYO Esquivel and had the opportunity to ask questions and assume patient care.
[2023-09-01] MEDS: pantoprazole 40MG/NS 100ML BAG 100 ML IV SCH (07:20)
[2023-09-01] MEDS: LEVOTHYROXINE SODIUM 100 MCG/5 ML injection IV SCH (07:20)
[2023-09-01 08:00] VITALS: RESP 20; O2SAT 97
[2023-09-01] MEDS: PARoxetine 20mg tablet PO SCH (08:00)
[2023-09-01] MEDS: loratadine 10mg tablet PO SCH (08:00)
[2023-09-01] MEDS: docusate sod 100mg capsule PO SCH ×3 (08:00→19:52)
[2023-09-01] MEDS: lactose-reduced food (Ensure Enlive) - 237ml bottle PO SCH ×3 (08:00→18:14)
[2023-09-01] MEDS: atorvastatin 20mg tablet PO SCH (08:00)
[2023-09-01] MEDS: calcium carbonate/vitamin D3 tablet PO SCH (08:00)
[2023-09-01] MEDS: K and/or MAG REPLACEMENT MC SCH ×4 (08:00→19:23)
[2023-09-01] MEDS: heparin, porcine 5000 units/ml vial SQ SCH ×2 (08:00→19:34)
[2023-09-01] MEDS: nicotine 14mg patch - 24hr TD SCH (08:00)
[2023-09-01] MEDS: morphine 2 MG/ML inj. syringe IV PRN ×3 (08:21→23:59)
[2023-09-01] MEDS: levetiracetam inj 1,000 MG in normal saline 100ml IV soln 100 ML IV SCH ×2 (08:22→19:46)
[2023-09-01 10:00] VITALS: BP 136/67; PULSE 80; RESP 20; TEMP 97.7; O2SAT 97
[2023-09-01] MEDS: morphine 10mg/0.5ml (conc. morphine) oral syringe PO PRN ×2 (13:12→16:55)
--- NOTE | 2023-09-01 14:52 | NUR ---
INVENTORY CONTROL SPECIALIST documentation: I have reviewed and agree with all interventions, assessments performed and documented by Richy Guzman LVN.
[2023-09-01 18:00] VITALS: BP 148/82; PULSE 84; RESP 18; TEMP 98.6; O2SAT 100
--- NOTE | 2023-09-01 18:43 | NUR ---
Problems reprioritized. Patient report given, questions answered & plan of care reviewed with LAYO Pritchard.
--- NOTE | 2023-09-01 18:45 | NUR ---
Patient in room ORTHO 4018. I have received report from Richy ALONZO and had the opportunity to ask questions and assume patient care.
[2023-09-01] MEDS: traZODone 50mg tablet PO SCH ×2 (19:33→19:52)
[2023-09-01] MEDS: VANCOMYCIN 750MG IV in NS 250 ML IV SCH (19:34)
[2023-09-01] MEDS: LORazepam 2 mg/ml vial IV PRN (19:37)
[2023-09-01 19:40] VITALS: RESP 18; O2SAT 100
[2023-09-01 22:00] VITALS: BP 128/71; PULSE 79; RESP 15; TEMP 97.2; O2SAT 99
[2023-09-02] MEDS: LORazepam 2 mg/ml vial IV PRN ×4 (01:28→20:21)
[2023-09-02 06:00] VITALS: BP 137/59; PULSE 79; RESP 16; TEMP 96.8; O2SAT 98
[2023-09-02 06:39] LABS: ALANINE AMINOTRANSFERASE 22 U/L (12-78); ALBUMIN 1.4 G/DL (3.4-5.0); ALBUMIN/GLOBULIN RATIO 0.4 (1.1-1.5); ALKALINE PHOSPHATASE 196 IU/L (46-116); ANION GAP 6 (8-16); ASPARTATE AMINO TRANSFERASE 19 U/L (10-37); BILIRUBIN,TOTAL 0.3 MG/DL (0.1-1.0); BLOOD UREA NITROGEN 5 MG/DL (7-18); BUN/CREATININE RATIO 7.8 (10.0-20.0); CALCIUM 7.8 MG/DL (8.5-10.1); CHLORIDE 114 MMOL/L (99-107); CREATININE 0.64 MG/DL (0.40-0.90); GLUCOSE 95 MG/DL (70-104); MAGNESIUM 1.5 MG/DL (1.5-2.4); PHOSPHORUS 2.4 MG/DL (2.3-4.5); POTASSIUM 3.7 MMOL/L (3.5-5.1); SODIUM 143 MMOL/L (135-145); TOTAL CARBON DIOXIDE 23.4 MMOL/L (24-32); TOTAL PROTEIN 5.1 G/DL (6.4-8.2); eCRCL 45 ML/MIN; eGFR 90 ML/MIN
[2023-09-02 06:45] LABS: THYROID PEROXIDASE AB 261 IU/mL (0-34)
--- NOTE | 2023-09-02 06:45 | NUR ---
Problems reprioritized. Patient report given, questions answered & plan of care reviewed with Nara VASQUES.
[2023-09-02 08:00] VITALS: RESP 16
[2023-09-02] MEDS: lactose-reduced food (Ensure Enlive) - 237ml bottle PO SCH ×3 (08:00→18:00)
[2023-09-02] MEDS: calcium carbonate/vitamin D3 tablet PO SCH (08:00)
[2023-09-02] MEDS: atorvastatin 20mg tablet PO SCH (08:00)
[2023-09-02] MEDS: K and/or MAG REPLACEMENT MC SCH ×4 (08:00→20:00)
[2023-09-02] MEDS: nicotine 14mg patch - 24hr TD SCH (08:00)
[2023-09-02] MEDS: PARoxetine 20mg tablet PO SCH (08:00)
[2023-09-02] MEDS: loratadine 10mg tablet PO SCH (08:00)
[2023-09-02] MEDS: heparin, porcine 5000 units/ml vial SQ SCH ×2 (09:09→20:00)
[2023-09-02 10:00] VITALS: BP 145/70; PULSE 79; RESP 11; TEMP 97.8; O2SAT 98
[2023-09-02] MEDS: levetiracetam inj 1,000 MG in normal saline 100ml IV soln 100 ML IV SCH ×2 (10:25→19:58)
[2023-09-02] MEDS: normal saline 1000ml 1,000 ML IV SCH (10:26)
[2023-09-02] MEDS: LEVOTHYROXINE SODIUM 100 MCG/5 ML injection IV SCH (10:32)
[2023-09-02] MEDS: pantoprazole 40MG/NS 100ML BAG 100 ML IV SCH (10:56)
[2023-09-02 11:41] VITALS: RESP 16; O2SAT 98
--- NOTE | 2023-09-02 15:03 | NUR ---
FC tubing moved and adjusted to prevent pressure. Addendum: 09/02/23 at 1511 by Nara Lira RN Amended: Links added.
--- NOTE | 2023-09-02 17:46 | NUR ---
Student documentation: I have reviewed all interventions, assessments performed and documented by London MCGEE of [facility]. Student Medication Administration: For all medication-passes in the time frame of 4715-0276, all medication were reviewed, dispensed, administered and documented per hospital policy by London MCGEE of [facility].
[2023-09-02 18:00] VITALS: BP 155/92; PULSE 90; RESP 14; TEMP 97.7; O2SAT 99
--- NOTE | 2023-09-02 18:15 | NUR ---
Report given to Francheska VASQUES
--- NOTE | 2023-09-02 18:15 | NUR ---
Patient in room ORTHO 4018. I have received report from Karo VASQUES and had the opportunity to ask questions and assume patient care.
[2023-09-02] MEDS ORDERED: VANCOMYCIN LEVEL IV ONE (18:30)
[2023-09-02] MEDS: VANCOMYCIN 750MG IV in NS 250 ML IV SCH (19:00)
[2023-09-02 19:50] VITALS: RESP 18; O2SAT 100
[2023-09-02] MEDS: morphine 10mg/0.5ml (conc. morphine) oral syringe PO PRN (19:58)
[2023-09-02] MEDS: docusate sod 100mg capsule PO SCH (20:00)
[2023-09-02] MEDS ORDERED: vancomycin inj 500 MG in normal saline 100ml IV soln 100 ML IV SCH (21:00)
[2023-09-02] MEDS: traZODone 50mg tablet PO SCH (21:00)
[2023-09-03] MEDS: LORazepam 2 mg/ml vial IV PRN ×2 (01:26→10:29)
[2023-09-03] MEDS: morphine 10mg/0.5ml (conc. morphine) oral syringe PO PRN ×4 (01:40→21:51)
[2023-09-03] MEDS: normal saline 1000ml 1,000 ML IV SCH ×2 (03:39→14:24)
[2023-09-03 06:31] LABS: ALANINE AMINOTRANSFERASE 21 U/L (12-78); ALBUMIN 1.4 G/DL (3.4-5.0); ALBUMIN/GLOBULIN RATIO 0.4 (1.1-1.5); ALKALINE PHOSPHATASE 178 IU/L (46-116); ANION GAP 5 (8-16); ASPARTATE AMINO TRANSFERASE 18 U/L (10-37); BILIRUBIN,TOTAL 0.3 MG/DL (0.1-1.0); BLOOD UREA NITROGEN 6 MG/DL (7-18); CALCIUM 8.1 MG/DL (8.5-10.1); CHLORIDE 112 MMOL/L (99-107); GLUCOSE 87 MG/DL (70-104); MAGNESIUM 1.5 MG/DL (1.5-2.4); PHOSPHORUS 2.7 MG/DL (2.3-4.5); POTASSIUM 3.1 MMOL/L (3.5-5.1); SODIUM 143 MMOL/L (135-145); TOTAL CARBON DIOXIDE 26.3 MMOL/L (24-32); TOTAL PROTEIN 5.3 G/DL (6.4-8.2); eCRCL 48 ML/MIN; eGFR > 90 ML/MIN
[2023-09-03] MEDS: pantoprazole 40MG/NS 100ML BAG 100 ML IV SCH (06:43)
--- NOTE | 2023-09-03 06:45 | NUR ---
Problems reprioritized. Patient report given, questions answered & plan of care reviewed with Nara VASQUES.
[2023-09-03] MEDS: levetiracetam inj 1,000 MG in normal saline 100ml IV soln 100 ML IV SCH (07:02)
[2023-09-03] MEDS: K and/or MAG REPLACEMENT MC SCH ×2 (07:15→08:00)
[2023-09-03] MEDS: LEVOTHYROXINE SODIUM 100 MCG/5 ML injection IV SCH (07:18)
[2023-09-03 07:26] VITALS: BP 158/86; PULSE 84; RESP 22; TEMP 96.6; O2SAT 99
[2023-09-03] MEDS: calcium carbonate/vitamin D3 tablet PO SCH (08:00)
[2023-09-03] MEDS: docusate sod 100mg capsule PO SCH (08:00)
[2023-09-03] MEDS: atorvastatin 20mg tablet PO SCH (08:00)
[2023-09-03] MEDS: heparin, porcine 5000 units/ml vial SQ SCH (08:00)
[2023-09-03] MEDS: lactose-reduced food (Ensure Enlive) - 237ml bottle PO SCH (08:00)
[2023-09-03] MEDS: PARoxetine 20mg tablet PO SCH (08:00)
[2023-09-03] MEDS: loratadine 10mg tablet PO SCH (08:00)
[2023-09-03] MEDS: nicotine 14mg patch - 24hr TD SCH (08:00)
[2023-09-03 08:03] VITALS: RESP 16
[2023-09-03] MEDS ORDERED: POTASSIUM BICARB 20meq eff tab 20 MEQ TABLET.EFF PO PRN ×2 (09:40)
--- NOTE | 2023-09-03 10:11 | NUR ---
Message: [phone] Gill Joe I just had a conversation with the son and he is wishing for comfort care. Nara [phone]
[2023-09-03 11:04] VITALS: BP 157/83; PULSE 85; RESP 18; TEMP 98.1; O2SAT 98
[2023-09-03 14:08] LABS: ANTINUCLEAR ANTIBODIES Positive (Negative)
[2023-09-03] MEDS ORDERED: LORazepam 2 mg/ml vial IV PRN (15:55)
--- NOTE | 2023-09-03 16:04 | NUR ---
F/u 09/03: Noted pt has been made DNR w/ comfort care per EMR. LBM 08/31 in EMR. Will continue to follow per comfort measures. Rec: 1. bowel care per rx Addendum: 09/03/23 at [address] Amended: Links added.
--- NOTE | 2023-09-03 17:39 | NUR ---
Student documentation: I have reviewed all interventions, assessments performed and documented by London MCGEE of [facility]. Student Medication Administration: For all medication-passes in the time frame of 6281-3568, all medication were reviewed, dispensed, administered and documented per hospital policy by London MCGEE of [facility].
[2023-09-03 18:30] VITALS: BP 136/70; PULSE 82; RESP 18; TEMP 97; O2SAT 96
[2023-09-03 19:20] VITALS: RESP 18; O2SAT 96
[2023-09-03] MEDS ORDERED: vancomycin inj 500 MG in normal saline 100ml IV soln 100 ML IV SCH (22:00)
[2023-09-03] MEDS: morphine 2 MG/ML inj. syringe IV PRN (23:09)
[2023-09-03 23:27] VITALS: BP 148/75; PULSE 78; RESP 14; TEMP 96.7; O2SAT 97
[2023-09-04] MEDS: morphine 10mg/0.5ml (conc. morphine) oral syringe PO PRN ×3 (05:54→20:10)
[2023-09-04 06:00] VITALS: BP 162/83; PULSE 81; RESP 20; TEMP 97.3; O2SAT 96
--- NOTE | 2023-09-04 06:39 | NUR ---
Patient in room ORTHO 4018. I have received report from carina blake and had the opportunity to ask questions and assume patient care.
--- NOTE | 2023-09-04 06:41 | NUR ---
Problems reprioritized. Patient report given, questions answered & plan of care reviewed with Charu. Addendum: 09/04/23 at 0641 by Marito Calle RN Amended: Links added.
[2023-09-04 08:17] LABS: ANTITHYROGLOBULIN AB 1.8 IU/mL (0.0-0.9)
--- NOTE | 2023-09-04 08:55 | NUR ---
per Ativan changed to 1 mg.
[2023-09-04 11:00] VITALS: BP 179/97; PULSE 88; RESP 16; TEMP 97.6
--- NOTE | 2023-09-04 11:43 | NUR ---
notified of pts bp stated she will be rounding in a few
[2023-09-04] MEDS: LORazepam 2 mg/ml vial IV PRN ×3 (11:56→22:30)
--- NOTE | 2023-09-04 12:11 | NUR ---
per pt family did not want pt to have Roxanol right now maybe later. Ativan was given per family.
--- NOTE | 2023-09-04 14:21 | NUR ---
asked pt son if i could give pt Roxanol or Ativan because she was yelling to keep her comfortable. per son he does not want her to have either right now stated he would let me know.
--- NOTE | 2023-09-04 15:13 | NUR ---
per son he would like pt to have some Ativan now.
[2023-09-04 18:00] VITALS: BP 142/67; PULSE 81; RESP 20; TEMP 97.4; O2SAT 97
[2023-09-04 20:00] VITALS: RESP 14; O2SAT 95
[2023-09-04 22:00] VITALS: BP 156/77; PULSE 84; RESP 14; TEMP 97.6; O2SAT 94
--- NOTE | 2023-09-05 03:44 | NUR ---
Patient in room ORTHO 4018. I have received report from Charu and had the opportunity to ask questions and assume patient care.
--- NOTE | 2023-09-05 03:51 | NUR ---
Problems reprioritized. Patient report given, questions answered & plan of care reviewed with shira blake.
[2023-09-05 08:10] VITALS: RESP 14; O2SAT 97
[2023-09-05] MEDS: LORazepam 2 mg/ml vial IV PRN (08:29)
[2023-09-05 10:00] VITALS: BP 137/70; PULSE 90; RESP 14; TEMP 97.9; O2SAT 97
[2023-09-05 10:44] VITALS: RESP 16; O2SAT 96
--- NOTE | 2023-09-05 11:15 | NUR ---
Patient readied for discharge. Transport from [facility] arrived at 10:50 to sisal picker patient. Patient was wheeled out via gurney by transport company. Patient is set up with [facility] per . Patient's belongings were sent with patient.
--- NOTE | 2023-09-05 13:36 | NUR ---
The following was taken from the patients H&P: This is a 78 year old female who presented to ED by [facility] rehab for decreased loss of consciousness over the past 24 hours. History of developmental disability and UTIs. Unable to obtain full history due to ALOC. Pt. family member states that Pt. has been admitted twice to [facility] for UTI then send to [facility] to complete IV antibiotics. Pt. has been bed ridden for 1 year. Pt. was noted to have twitching of her facial muscles and abnormal blinks. MRI studies show changes secondary to post ictal etiologies, ischemia, and infection. Pt. was admitted for the management of ALOC. Wound care in for follow up skin assessment of sacrum and low Jeffrey score. Pt. found sleeping in bed in no apparent acute distress. Greeted and explained intent. Pt. is unable to communicate. Heels pink and boggy. Primary nurse in the room taking out IV catheter in left foot. Skin around IV catheter site red/pink and blanching. Groin and breast fold areas pink, moist, no skin breakdown noted at this time. Sacrococcygeal has an open area of exposed wound bed filled with a mixture of moist attached red/yellow tissue, no odor, with surrounding attached skin that is non-blanching and purple, consistent with stage II pressure ulcer complicated by urine and stool incontinence. Rest of skin unremarkable. Wound care preformed. Pt. repositioned in bed. Bed left in the lowest position. Heels floated. Call light/personal items in reach. Report given to primary nurse. Wound care will continue to follow Pt.
[2023-09-05] MEDS ORDERED: VANCOMYCIN LEVEL IV ONE ×2 (20:30→21:30)
== END 2023-09-05 11:15 | disposition hospice, home (50) | DRG 100 ==
LOC: ER 11:04 → ED HOLD 16:38 → UNDOADMIN 16:38 → ED HOLD 16:45 → EDBEDREQ 17:27 → EDBEDREQSVC 17:27 → ORTHO 4S 19:20 → ED HOLD 19:20
PROVIDERS: ADMIT Internal Medicine; ATTEND Internal Medicine
PROC: 4A00X4Z Measurement of Central Nervous Electrical Activity, External Approach (ICD-10-PCS; principal; 2023-08-28)
PROC: 4A00X4Z Measurement of Central Nervous Electrical Activity, External Approach (ICD-10-PCS; 2023-08-30)
PROC: 4A00X4Z Measurement of Central Nervous Electrical Activity, External Approach (ICD-10-PCS; 2023-08-31)
PROC: 00JU3ZZ Inspection of Spinal Canal, Percutaneous Approach (ICD-10-PCS; 2023-08-31)
DX: R56.9 Unspecified convulsions (principal); E43 Unspecified severe protein-calorie malnutrition; Z68.1 Body mass index [BMI] 19.9 or less, adult; I67.82 Cerebral ischemia; R78.81 Bacteremia; B37.49 Other urogenital candidiasis; Z66 Do not resuscitate; E78.5 Hyperlipidemia, unspecified; E03.9 Hypothyroidism, unspecified; F32.A Depression, unspecified; D53.9 Nutritional anemia, unspecified; E87.6 Hypokalemia; B95.7 Other staphylococcus as the cause of diseases classified elsewhere; L89.159 Pressure ulcer of sacral region, unspecified stage; R25.3 Fasciculation; Z74.01 Bed confinement status; Z87.440 Personal history of urinary (tract) infections; Z88.0 Allergy status to penicillin; Z88.8 Allergy status to other drugs, medicaments and biological substances; Z79.899 Other long term (current) drug therapy
CPT/HCPCS: 36415; 62328; 70450; 70551; 71045; 80048; 80053; 80177; 80202; 81001; 82607; 82948; 83605; 83735; 84100; 84145; 84443; 85008; 85025; 86038; 86376; 86800; 87040; 87077; 87081; 87088; 87186; 92508; 92616; 95720; 95816; 97110; 97161; 97530; 99285; A4314; A4615; A5200; A6212; A6213; A6223; A6250; A6258; A6402; A6449; C9113; G0378; J0360; J1644; J1953; J2060; J2185; J2250; J2270; J3370; J3480; J3490; J7030; J7050